=== PATIENT | male | born 2000 | race Two or more races ===

== ENCOUNTER 2019-08-20 14:40 | Emergency (ER) | payer OTHER ==
[2019-08-20] MEDS ORDERED: Diphtheria,Pertussis(Acell),Tetanus Vaccine 0.5 ML SDV IM ONE (15:12)
--- NOTE | 2019-08-20 15:19 | CR ---
[id number] RAD/RAD Fingers Right Exam: RAD Fingers Right Indication:STUCK IN ROLLER. Comparison: No prior imaging for comparison. Discussion: Laceration at the tip of the second digit. No underlying fracture. No retained radiopaque foreign bodies. Impression: As above. Rainer Montelongo MD 08/20/19 0365 Thank you for allowing us to participate in the care of your patient.
--- NOTE | 2019-08-20 15:30 | EDM.PDOC ---
ED HPI GENERAL MEDICAL PROBLEM - General Chief Complaint: Upper Extremity Injury/Pain Stated Complaint: INJURED FINGER Time Seen by Provider: 08/20/19 15:12 Source of Information: Reports: Patient History Limitations: Reports: No Limitations - History of Present Illness INITIAL COMMENTS - FREE TEXT/NARRATIVE: 19 yo WM presents to ER with right index finger tip injury. Pt reports he got his finger caught in a conveyer belt roller and it caused an avulsion injury to his right index finger tip. Pt denies any other injuries. Pt reports his last tetanus was 2011. Onset: Today Duration: Hour(s): (1) Location: Reports: Upper Extremity, Right Quality: Reports: Ache Severity: Mild Improves with: Reports: None Worsens with: Reports: None Associated Symptoms: Reports: No Other Symptoms Right Finger-Index Pain Score (Numeric/FACES): 9 - Related Data Allergies Allergy/AdvReac Type Severity Reaction Status Date / Time No Known Allergies Allergy Verified 08/20/19 14:43 Home Meds: Home Meds . [No Known Home Meds] 08/20/19 [History] Past Medical History - Past Health History Medical/Surgical History: Denies Medical/Surgical History Social & Family History - Tobacco Use Smoking Status *Q: Current Every Day Smoker Years of Tobacco use: 2 Packs/Tins Daily: 0.1 - Recreational Drug Use Recreational Drug Use: No Review of Systems - Review of Systems Review Of Systems: See Below Constitutional: Reports: No Symptoms Eyes: Reports: No Symptoms Ears: Reports: No Symptoms Nose: Reports: No Symptoms Mouth/Throat: Reports: No Symptoms Respiratory: Reports: No Symptoms Cardiovascular: Reports: No Symptoms GI/Abdominal: Reports: No Symptoms Genitourinary: Reports: No Symptoms Musculoskeletal: Reports: No Symptoms Skin: Reports: Wound (superficial right index finger tip injury with partial nail avulsion) Neurological: Reports: No Symptoms Psychiatric: Reports: No Symptoms ED EXAM, GENERAL - Physical Exam Exam: See Below Exam Limited By: No Limitations General Appearance: Alert, WD/WN, No Apparent Distress Head: Atraumatic, Normocephalic Neck: Normal Inspection, Supple, Non-Tender, Full Range of Motion Respiratory/Chest: No Respiratory Distress, Lungs Clear, Normal Breath Sounds, No Accessory Muscle Use, Chest Non-Tender Cardiovascular: Normal Peripheral Pulses, Regular Rate, Rhythm, No Edema, No Gallop, No JVD, No Murmur, No Rub GI/Abdominal: Normal Bowel Sounds, Soft, Non-Tender, No Organomegaly, No Distention, No Abnormal Bruit, No Mass Back Exam: Normal Inspection, Full Range of Motion, NT Extremities: Normal Range of Motion, No Pedal Edema, Normal Capillary Refill Neurological: Alert, Oriented, CN II-XII Intact, Normal Cognition, Normal Gait, Normal Reflexes, No Motor/Sensory Deficits Psychiatric: Normal Affect, Normal Mood Skin Exam: Warm, Dry, Normal Color, No Rash, Wound/Incision (superficial right index finger tip injury with partial nail avulsion) ED TRAUMA EXTREMITY PROCEDURES - Laceration/Wound Repair Right Digit - 2nd (Index) Lac/Wound Length In cm: 2 Appearance: Superficial Distal NVT: Neuro & Vascular Intact Anesthetic Type: Digital Local Anesthesia - Lidocaine (Xylocaine): 1% Plain Local Anesthetic Volume: 5cc Skin Prep: Chlorhexidine (Hibiciens), Providone-Iodine (Betadine) Exploration/Debridement/Repair: Wound Explored Sterile Dressing Applied: Provider Tetanus Status Addressed: Yes Complications: No Progress/Comments: debridement of superficial skin and partial nail avulsion without suturing Course - Vital Signs Last Recorded V/S: Last Vital Signs Temp 36.1 C 08/20/19 14:46 Pulse 88 08/20/19 14:46 Resp 16 08/20/19 14:46 BP 129/66 08/20/19 14:46 Pulse Ox 99 08/20/19 14:46 - Orders/Labs/Meds Orders: Active Orders 24 hr Category Date Time Status Fingers Second Digit Rt F6 [CR] Stat Exams 08/20/19 14:45 Ordered - Radiology Interpretation Free Text/Narrative:: right index finger- NAD Departure - Departure Time of Disposition: 15:35 Disposition: Home, Self-Care 01 Condition: Good Clinical Impression: Nail avulsion, finger Qualifiers: Encounter type: initial encounter Qualified Code(s): S61.309A - Unspecified open wound of unspecified finger with damage to nail, initial encounter Injury of tip of finger of right hand Qualifiers: Encounter type: initial encounter Qualified Code(s): S69.91XA - Unspecified injury of right wrist, hand and finger(s), initial encounter - Discharge Information Instructions: Nail Avulsion, Wound Care, Adult Referrals: Sasha Coon MD [Primary Care Provider] - Additional Instructions: 1. discharge home 2. wound instructions given 3. keep clean and dry 4. return to ER for worsening symptoms 5. follow up with PCP for further evaluation and treatment Sepsis Event Note - Evaluation Sepsis Screening Result: No Definite Risk - Focused Exam Vital Signs: Vital Signs Temp Pulse Resp BP Pulse Ox 08/20/19 14:46 36.1 C 88 16 129/66 99 Date Exam was Performed: 08/20/19 Time Exam was Performed: 15:12 - My Orders Last 24 Hours: My Active Orders 08/20/19 14:45 Fingers Second Digit Rt F6 [CR] Stat - Assessment/Plan Last 24 Hours: My Active Orders 08/20/19 14:45 Fingers Second Digit Rt F6 [CR] Stat Assessment:: 1. superficial right index finger tip injury with partial nail avulsion Plan: 1. discharge home 2. wound instructions given 3. keep clean and dry 4. return to ER for worsening symptoms 5. follow up with PCP for further evaluation and treatment
== END 2019-08-20 15:50 | disposition home or self-care (01) ==
LOC: KA.ED 14:40
DX: S61.310A Laceration without foreign body of right index finger with damage to nail, initial encounter (principal); Z23 Encounter for immunization; F17.210 Nicotine dependence, cigarettes, uncomplicated; W23.0XXA Caught, crushed, jammed, or pinched between moving objects, initial encounter
CPT/HCPCS: 11730; 73140-F6; 90471; 90715; 99283-25